=== PATIENT | male | born 1995 | race Two or more races ===

== ENCOUNTER 2022-03-30 23:22 | Emergency (ER) | payer OTHER ==
[~2022-03-30] VITALS: Ht 167.6 cm; Wt 68.0 kg
--- NOTE | 2022-03-30 23:35 | NUR ---
[id number] C/O USING [facility] EARLIER TODAY. PT NOT ALERT AT THIS TIME . TOLERATING R/A WELL WITH NO SOB; RESP EVEN AND NON LABORED. SAFETY MEASURES IN PLACE.
--- NOTE | 2022-03-31 05:05 | NUR ---
CALLED HARRIS (MOTHER) AND LORIN (FATHER) TO [employer] PT. NO ANSWER WILL TRY AGAIN LATER.
--- NOTE | 2022-03-31 05:41 | NUR ---
LEFT VOICE MESSAGE TO HARRIS (MOTHER)
--- NOTE | 2022-03-31 06:47 | NUR ---
Patient discharged to home in stable condition. Written and verbal after care instructions given. Patient verbalizes understanding of instruction. PT ambulatory with a steady gait
[2022-03-31 06:49] VITALS: BP 129/73
== END 2022-03-31 06:49 | disposition home or self-care (01) ==
LOC: ER 23:28
DX: F15.10 Other stimulant abuse, uncomplicated (principal); Z60.2 Problems related to living alone
CPT/HCPCS: 82962-TC